=== PATIENT | female | born 1955 | race Caucasian/White ===

== ENCOUNTER → 2020-01-11 14:45 | Outpatient (CLI) | payer BC, SELFPAY ==
--- NOTE | ~2020-01-11 | MM_ITS ---
EXAMINATION: MM screening elsa BI w diego HISTORY: Screening TECHNIQUE: Craniocaudal and mediolateral oblique 3-D tomosynthesis images were obtained and synthetic 2-D images were generated. CAD analysis was submitted and interpreted. COMPARISON: Comparison to multiple prior studies sequentially, with oldest reviewed study dated 02/20. BREAST PARENCHYMAL COMPOSITION: There are scattered areas of fibroglandular density. FINDINGS: There is no evidence of suspicious mass, calcification, or architectural distortion to sugg est malignancy in either breast. There has been no suspicious interval change. IMPRESSION: 1. No mammographic evidence of malignancy. 2. Recommend routine screening mammography in one year. BI-RADS Category 1: Negative Reviewed, dictated and finalized at location A.
== END ==
PROVIDERS: PCP Family Medicine; Visit Provider Family Medicine
DX: Z12.31 Encounter for screening mammogram for malignant neoplasm of breast (principal)
CPT/HCPCS: 77063; 77067

== ENCOUNTER 2020-08-05 02:42 | Emergency (ER) | payer BC, SELFPAY ==
--- NOTE | ~2020-08-05 | CT_ITS ---
EXAMINATION: CT abdomen pelvis w con EXAM DATE: 08/05/2020 06:39 INDICATION: Trauma/hematuria/colitis. TECHNIQUE: Spiral CT of the abdomen and pelvis was performed following intravenous injection of 100 m L Omnipaque 350. Axial, coronal and sagittal images were reviewed. The dose-length product (DLP) fo r this examination was 596.55 mGy-cm. The exposure was tailored according to patient size (auto mA e xposure control), and iterative reconstruction (ASIR) was used as additional dose reduction technique . Correlation is made to right upper quadrant sonogram 06/17/2019. FINDINGS: There is lobular right liver lobe lesion measuring up to 2.9 cm, with punctate calcificatio n along its wall. This was not specifically visualized on right upper quadrant sonogram, however live r dome was somewhat obscured on that exam. Gallbladder is unremarkable. No biliary obstruction. Portal and splenic veins are patent. Kidneys enhance symmetrically. There is no hydronephrosis. There is moderate to severe right renal atrophy. There are regions of bilateral renal cortical scarring from prior infections or infarctions. The quileute josé miguel is not identified and has likely been surgically resected. The bladder is unremarkable. There i s no retroperitoneal or pelvic lymphadenopathy. There is moderate scattered arteriosclerotic diseas e. There are no findings to suggest appendicitis. There is small sliding gastroesophageal hiatal hernia . There is colonic wall edema from the mid transverse colon to the sigmoid colon, colitis. No pneuma tosis or perforation. Mesenteric vasculature enhances as expected, indicating this is more likely inf ectious. Nonocclusive mesenteric ischemia not excludable. Consider checking lactate. No free intraper itoneal gas. The heart is normal in size. There are no pericardial or pleural effusions. Scattered linear bibasi lar segmental atelectasis. There are no osteoblastic or osteolytic lesions identified. There is mod erate lower thoracic levoscoliosis. There is mild to moderate chronic compression fracture superior e ndplate of L3. IMPRESSION: 1. Transverse, descending colonic colitis most likely infectious but consider checking lactate. 2. Low-density RIGHT LIVER DOME LESION, PROBABLY CYSTIC with several septations. 3. Bilateral renal cortical scarring. 4. Bibasilar subsegmental atelectasis. 5. Small hiatal hernia. Reviewed, dictated and finalized at location A. [employer] IMPRESSION: 1. Transverse, descending colonic colitis most likely infectious but consider checking lactate. 2. Low-density RIGHT LIVER DOME LESION, PROBABLY CYSTIC with several septation s. 3. Bilateral renal cortical scarring. 4. Bibasilar subsegmental atelectasis. 5. Small hiatal hernia.
--- NOTE | ~2020-08-05 | XR_ITS ---
EXAMINATION: XR ribs RT 2V w CXR 2V EXAM DATE: 08/05/2020 05:02 INDICATION: Right rib pain after fall, posteriorly. Initial encounter. TECHNIQUE: Frontal projection of the upper right ribs, frontal projection of the lower right ribs, ob lique projection of the right ribs, frontal and lateral chest x-ray(s) for interpretation. Comparison is made to prior examination from 02/08/2016. FINDINGS: There are no displaced acute right rib fractures identified. There is no soft tissue abno rmality seen. No confluent consolidation, pneumothorax suspected. Some linear basilar opacities most consistent with subsegmental atelectasis. Possible small pleural effusions. There is moderate thorac ic dextroscoliosis, thoracolumbar levoscoliosis. Consider educating patient that even if there is a radiographically occult nondisplaced rib fracture, there is no specific treatment other than to refrain from activity that prevents healing. IMPRESSION: 1. No displaced right rib fractures. 2. Bibasilar linear opacities likely atelectasis. 3. Possible small pleural effusions. 4. Scoliosis. Reviewed, dictated and finalized at location A. [employer]
[2020-08-05 02:47] VITALS: BP 143/80; PULSE 85; RESP 23; TEMP 36.5; O2SAT 96
--- NOTE | 2020-08-05 03:25 | PC.NURSE ---
Patient sent to bathroom with fecal container to catch bloody stool. Patient noted to have slightly less than quarter size drop of red blood. Dr Malik made aware
[2020-08-05 03:30] VITALS: BP 142/82; PULSE 78; RESP 17; O2SAT 96
[2020-08-05 04:00] VITALS: BP 126/60; PULSE 73; RESP 21; O2SAT 98
[2020-08-05] MEDS: DICYCLOMINE HCL INJ 20 MG/2 ML VIAL IM (04:11)
[2020-08-05 04:35] LABS: Basophils Percent Auto 0.2 % (0.2-1.2); Eosinophils Absolute Auto 0.2 K/mm3 (0-0.3); Eosinophils Percent Auto 1.8 % (0-4.4); Hematocrit 42.7 % (37.0-47.0); Hemoglobin 14.4 g/dL (12.0-15.0); Immature Granulocyte Absolute 0.03 K/mm3 (0.00-0.031); Immature Granulocyte Percent A 0.3 % (0-0.5); Lymphocytes Absolute Auto 1.66 K/mm3 (0.9-3.2); Lymphocytes Percent Auto 17.4 % (18.3-44.2); Mean Corpuscular HGB Conc 33.7 g/dl (32-36); Mean Corpuscular Hemoglobin 29.8 pg (26-34); Mean Corpuscular Volume 88.2 fl (80-100); Mean Platelet Volume 9.1 fl (7.4-10.4); Monocytes Absolute Auto 0.6 K/mm3 (0.1-0.6); Monocytes Percent Auto 5.9 % (2.6-8.5); Neutrophils Absolute Auto 7.1 K/mm3 (1.3-6.7); Neutrophils Percent Auto 74.4 % (45.5-73.1); Platelet Count Result 209 k/mm3 (150-375); Red Blood Count 4.84 M/mm3 (4.2-5.4); Red Cell Distribution Width 11.9 % (11.5-14.5); White Blood Count 9.5 K/mm3 (4.5-10.0)
--- NOTE | 2020-08-05 04:36 | ED.NAVMDI ---
HPI - Nausea/Vomiting/Diarrhea General Chief complaint: Nausea/Vomiting/Diarrhea Stated complaint: bloody stools Time Seen by Provider: 08/05/20 03:30 History of Present Illness HPI Narrative: Patient is a 65-year-old female who presents ER with diarrhea. Began this evening has had over 8 loose bowel movements. Varying in size. One had quite a bit of bright red blood. She passed a red blood clot on the bathroom here. No syncope or dizziness. Patient reports that she had a UTI last week and took 3 days of an antibiotic. She finished that about 5 days ago. No fevers or chills or sweats. No known sick contacts. Patient also reports right-sided rib pain from falling down the steps 2 days ago. She did not strike her head or lose consciousness. She has pain with deep breath but is not short of breath. Related Data Allergies Allergy/AdvReac Type Severity Reaction Status Date / Time latex Allergy Mild Rash Verified 08/05/20 04:07 Review of Systems Review of Systems: All systems reviewed & are unremarkable except as noted in HPI and below Constitutional: Constitutional: Denies chills, Denies fever(s) and Denies weakness Cardiovascular: Cardiovascular: Denies radiating jaw, neck or arm pain Comments: Chest wall pain Respiratory: Respiratory: Denies cough and Denies dyspnea Gastrointestinal: Gastrointestinal: Reports abdominal pain, Reports diarrhea, Denies nausea and Denies vomiting Comments: Blood in stool Genitourinary: Genitourinary: Denies nocturia, Denies dysuria and Denies flank pain PMFSH Past Medical History Medical History (Updated 08/05/20 @ 07:50 by Uli Malik MD) Anxiety Depression History of left heart catheterization Hypertension Hypothyroidism Myocardial infarction Surgical History Surgical History (Updated 08/05/20 @ 04:39 by Uli Malik MD) History of hysterectomy History of thyroidectomy History of tonsillectomy Social History Social History (Updated 08/05/20 @ 04:39 by Uli Malik MD) Smoking status: Never smoker Exam Narrative: Exam Narrative: GENERAL: Well-appearing, well-nourished, and in no acute distress. HEAD: Normocephalic, atraumatic. ENT: Mucous membranes moist. CHEST: Clear to auscultation. No respiratory distress. Right lower chest wall tenderness laterally without visual evidence of trauma. HEART: Regular rate and rhythm. Normal peripheral pulses. ABDOMEN: Soft, nontender, nondistended. Back: No midline tenderness of the thoracic or lumbar spine. EXTREMITIES: Normal range of motion. No edema. SKIN: Warm, dry, no rash. NEURO: Alert and oriented x3. Course Course Emergency Course: Patient informed of results. Resting comfortably. Will give Flagyl for colitis. Discharge home. Vital Signs Vital signs: Vital Signs Temperature 97.7 F 08/05/20 02:47 Pulse Rate 85 08/05/20 02:47 Respiratory Rate 23 H 08/05/20 02:47 Blood Pressure 143/80 H 08/05/20 02:47 Pulse Oximetry 96 08/05/20 02:47 Temperature 97.7 F 08/05/20 02:47 Pulse Rate 70 08/05/20 06:00 Respiratory Rate 19 08/05/20 06:00 Blood Pressure 110/65 08/05/20 06:00 Pulse Oximetry 97 08/05/20 06:00 MDM - Nausea/Vomiting/Diarrhea Lab Data Result diagrams: 08/05/20 04:27 08/05/20 04:27 Labs: Lab Results 08/05/20 08/05/20 08/05/20 Range/Units 04:27 04:27 04:27 WBC 9.5 (4.5-10.0) K/mm3 RBC 4.84 (4.2-5.4) M/mm3 Hgb 14.4 (12.0-15.0) g/dL Hct 42.7 (37.0-47.0) % MCV 88.2 (80-100) fl MCH 29.8 (26-34) pg MCHC 33.7 (32-36) g/dl RDW 11.9 (11.5-14.5) % Plt Count 209 (150-375) k/mm3 MPV 9.1 (7.4-10.4) fl Immature Gran % (Auto) 0.3 (0-0.5) % Neut % (Auto) 74.4 H (45.5-73.1) % Lymph % (Auto) 17.4 L (18.3-44.2) % [place] % (Auto) 5.9 (2.6-8.5) % Eos % (Auto) 1.8 (0-4.4) % Baso % (Auto) 0.2 (0.2-1.2) % Lymph # (Auto) 1.66 (0.9-3.2) K/mm3 [place] #
[2020-08-05 04:39] LABS: Add Urine Microscopic? YES; Appearance Urine Clear (Clear); Bilirubin Urine Negative (Negative); Blood Urine 2+ (Negative); Color Urine Yellow (Yellow); Glucose Urine UA Negative (Negative); Ketones Urine Negative (Negative); Leukocyte Esterase Ur 1+ LEU/UL (Negative); Nitrate Urine Negative (Negative); Protein Urine 1+ mg/dL (Negative); RBC Urine >75 /hpf (0-2); Specific Grav Ur 1.012 (1.001-1.035); Squamous Epithelial Cell Urine Rare /hpf (Few); Urobilinogen Urine Negative mg/dL (<2.0); WBC Urine 21-30 /hpf
[2020-08-05 04:46] LABS: Alanine Aminotransferase 26 U/L (4-35); Alkaline Phosphatase 98 U/L (38-126); Anion Gap 6 mmol/L (8-16); Aspartate Amino Transferase 30 U/L (14-36); Bilirubin,Total 0.4 mg/dL (0.2-1.3); Blood Urea Nitrogen 22 mg/dL (7-17); Calcium 9.3 mg/dL (8.4-10.2); Carbon Dioxide 28 mmol/L (22-30); Chloride 103 mmol/L (98-107); Estimated CRCL calculation 43 ml/min; Estimated Glomerular Filt Rate 45; Glucose 107 mg/dL (65-105); Lipase 224 U/L (23-300); Sodium 137 mmol/L (137-145)
[2020-08-05 05:00] VITALS: BP 130/70; PULSE 66; RESP 17; O2SAT 95
[2020-08-05 06:00] VITALS: BP 110/65; PULSE 70; RESP 19; O2SAT 97
[2020-08-05 08:08] VITALS: BP 130/74; PULSE 71; RESP 18; O2SAT 100
== END 2020-08-05 08:11 | disposition home or self-care (01) ==
PROVIDERS: Emergency Provider Emergency Medicine; PCP Family Medicine
DX: K52.9 Noninfective gastroenteritis and colitis, unspecified (principal); D18.09 Hemangioma of other sites; I10 Essential (primary) hypertension; I25.2 Old myocardial infarction; E89.0 Postprocedural hypothyroidism
CPT/HCPCS: 36415; 71046; 71100; 74177; 80053; 81001; 83690; 85025; 87077; 87086; 87088; 96372; 99284; J0500; Q9967

== ENCOUNTER → 2020-08-28 09:20 | Outpatient (CLI) | payer BC, SELFPAY ==
--- NOTE | ~2020-08-28 | US_ITS ---
EXAMINATION: US thyroid EXAM DATE: 08/28/2020 09:54 INDICATION: Cyst of thyroid . Right thyroidectomy. Hypothyroidism. TECHNIQUE: Multiple grayscale and Doppler images of the thyroid were obtained (by a technologist who performed the scan) and subsequently reviewed. Individual nodules and recommendations may be reporte d in accordance with TI-RADS system as designated by the 2017 ACR White Paper TI-RADS committee. The re is no prior study for comparison. FINDINGS: The right thyroid lobe is not identified, with an unremarkable thyroid fossa. Left thyroid lobe measu res 2.9 x 0.5 x 0.8 cm, small but otherwise morphologically normal. IMPRESSION: 1. Small left thyroid lobe. 2. Unremarkable right thyroidectomy bed. Reviewed, dictated and finalized at location A.
--- NOTE | ~2020-08-28 | US_ITS ---
US right upper quadrant INDICATION: Liver cyst PROCEDURE: Realtime right upper abdominal ultrasound. COMPARISON: CT dated 08/05/2020 and ultrasound dated 06/17/2019 FINDINGS: The pancreas is normal without focal mass or pancreatic ductal dilation. Liver echotexture is normal without focal mass or intrahepatic biliary dilatation. The hypodense mass of the right hep atic lobe seen on prior CT dated 08/05/2020 is not appreciated. There is normal directional flow in t he portal vein. The gallbladder is normal without stones, gallbladder wall thickening or pericholecystic fluid. Comm on bile duct measures 3 mm. No sonographic Blanchard's sign. IMPRESSION: 1: Normal limited abdominal ultrasound. The low-density mass of the liver seen on prior CT not apprec iated by ultrasound. Recommend correlation with MRI. Reviewed, dictated and finalized at location B. IMPRESSION: 1: Normal limited abdominal ultrasound. The low-density mass of the liver seen on prior CT not appreciated by ultrasound. Recommend correlation with MRI.
== END ==
PROVIDERS: PCP Family Medicine; Visit Provider Family Medicine
DX: E04.1 Nontoxic single thyroid nodule (principal); K76.89 Other specified diseases of liver
CPT/HCPCS: 76536; 76705

== ENCOUNTER → 2021-06-19 15:52 | Outpatient (CLI) | payer BC, SELFPAY ==
--- NOTE | ~2021-06-19 | MM_ITS ---
EXAMINATION: MM screening elsa BI w diego HISTORY: Screening TECHNIQUE: Craniocaudal and mediolateral oblique 3-D tomosynthesis images were obtained and synthetic 2-D images were generated. CAD analysis was submitted and interpreted. COMPARISON: Comparison to multiple prior studies sequentially, with oldest reviewed study dated 09/18. BREAST PARENCHYMAL COMPOSITION: There are scattered areas of fibroglandular density. FINDINGS: There is no evidence of suspicious mass, calcification, or architectural distortion to sugg est malignancy in either breast. There has been no suspicious interval change. IMPRESSION: 1. No mammographic evidence of malignancy. 2. Recommend routine screening mammography in one year. BI-RADS Category 1: Negative Reviewed, dictated and finalized at location A. L MAKER
== END ==
PROVIDERS: Visit Provider Family Medicine
DX: Z12.31 Encounter for screening mammogram for malignant neoplasm of breast (principal)
CPT/HCPCS: 77063; 77067

== ENCOUNTER 2021-11-25 09:08 | Emergency (ER) | payer BC, SELFPAY ==
[2021-11-25 09:17] VITALS: BP 148/70; PULSE 73; RESP 16; TEMP 37.2; O2SAT 98
--- NOTE | 2021-11-25 09:24 | ED.SKABFB ---
HPI - Skin/Abscess/Foreign Bdy General Chief complaint: Skin/Abscess/Foreign Body Stated complaint: Insect Bite Time Seen by Provider: 11/25/21 09:24 Source: patient Mode of arrival: ambulatory Limitations: no limitations History of Present Illness HPI narrative: 66-year-old female presents with complaint of spider bite to left forearm. Did not see a spider bite her but reports there were spiders in grass when she was helping her daughter clean. Has been applying calamine and Polysporin cream. Reports that redness is improving. Is mostly concerned because itching is bothering her. Has not tried any kpya-feb-kslniyr steroid cream or Benadryl. All systems reviewed and negative except as noted above. Related Data Allergies Allergy/AdvReac Type Severity Reaction Status Date / Time latex Allergy Mild Rash Verified 08/05/20 04:07 bacitracin Allergy Hives Verified 11/25/21 09:25 [From Neosporin ([id number])] neomycin Allergy Hives Verified 11/25/21 09:25 [From Neosporin ([id number])] polymyxin B Allergy Hives Verified 11/25/21 09:25 [From Neosporin ([id number])] Review of Systems Review of Systems: CONSTITUTIONAL: Denies fever, chills, or sweats. EYES: Denies visual changes, redness, or discharge. ENT: Denies rhinorrhea, congestion, sore throat, or otalgia. CARDIOVASCULAR: Denies chest pain, palpitations, or edema. RESPIRATORY: Denies cough or dyspnea. GASTROINTESTINAL: Denies abdominal pain, nausea, vomiting, or diarrhea. GENITOURINARY: Denies dysuria or hematuria. SKIN: Denies rash. Reports itchy spider bite to left forearm. MUSCULOSKELETAL: Denies back pain, joint pain, or myalgia. NEUROLOGIC: Denies headache, numbness, or weakness. PSYCHIATRIC: Denies anxiety or depression. All other systems reviewed are negative, except as documented in HPI. [facility] Past Medical History Medical History (Updated 11/25/21 @ 09:29 by Melissa Fernando NP) Anxiety Depression History of left heart catheterization Hypertension Hypothyroidism Myocardial infarction Surgical History Surgical History (Updated 08/05/20 @ 04:39 by Uli Malik MD) History of hysterectomy History of thyroidectomy History of tonsillectomy Social History Social History (Updated 08/05/20 @ 04:39 by Uli Malik MD) Smoking status: Never smoker Comments At time of signature, agree with nursing past medical, surgical, social and family history. There is no relevant family history pertinent to the presenting complaint. Exam Narrative: GENERAL: This is a well-nourished, well-developed patient, in no apparent distress. HEAD: normocephalic, atraumatic. EYES: PERRL. Sclera clear/white. Vision is grossly intact. EARS: External ears normal NOSE: External nose normal NECK: Neck supple, non-tender without lymphadenopathy, masses or thyromegaly. CARDIOVASCULAR: Regular rate and rhythm without murmurs, gallops, or rubs. RESPIRATORY: Clear to auscultation. Breath sounds equal bilaterally. No wheezes, rales, or rhonchi. SKIN: warm, Dry, intact with no suspicious rash, good texture and turgor. Erythematous papules to lateral aspect of left forearm, approximately the size of a pencil eraser. There is no drainage. There is no tenderness on palpation. There are no signs of infection. NEURO: awake, alert, and oriented to person, place and time. There were no obvious focal neurologic abnormalities. EXTREMITIES: No joint tenderness, effusion, or edema noted. Course Course Level of Care: Express Care Visit Vital Signs Vital signs: Vital Signs Temperature 37.2 C 11/25/21 09:17 Pulse Rate 73 11/25/21 09:17 Respiratory Rate 16 11/25/21 09:17 Blood Pressure 148/70 H 11/25/21 09:17 Pulse Oximetry 98 11/25/21 09:17 Oxygen Delivery Room Air 11/25/21 09:17 Temperature 37.2 C 11/25/21 09:17 Pulse Rate 73 11/25/21 09:17 Respiratory Rate 16 11/25/21 09:17 Blood Pressure 1
== END 2021-11-25 09:33 | disposition home or self-care (01) ==
PROVIDERS: Emergency Provider Nurse Practitioner Family; PCP Family Medicine
DX: S50.862A Insect bite (nonvenomous) of left forearm, initial encounter (principal); W57.XXXA Bitten or stung by nonvenomous insect and other nonvenomous arthropods, initial encounter; I10 Essential (primary) hypertension; I25.2 Old myocardial infarction; E89.0 Postprocedural hypothyroidism; F41.9 Anxiety disorder, unspecified; F32.A Depression, unspecified
CPT/HCPCS: 99213; G0463

== ENCOUNTER → 2021-12-27 11:20 | Outpatient (CLI) | payer BC, SELFPAY ==
--- NOTE | ~2021-12-27 | US_ITS ---
EXAMINATION: US carotid duplex BI DATE: 12/27/2021 11:40 INDICATION: Carotid stenosis. TECHNIQUE: Grayscale, color Doppler, and pulsed Doppler images of the cervical carotid arteries were obtained. The degree of vessel stenosis is placed in one of the following categories: normal, <50%, 5 0-69%, >=70% but less than near-occlusion, near-occlusion, or total occlusion. Note that percent sten osis relative to normal distal artery lumen diameter is indirectly measured from velocity measurement s as described by Humberto, et al. Radiology 2003; 229:340-346. Notes: Normal: Peak systolic velocity <125 centimeters/sec and no plaque <50%. Peak systolic velocity <125 ( EDV <40; ICA/CCA PSV ratio <2.0; used these factors only a tandem lesions or low cardiac output or co ntralateral disease) 50-69 %: PSV 125-230 (EDV 40-100; ratio 2-4) >= 70% but less than near occlusion: PSV greater than 230 (EDV > 100; ratio> 4.0) Near Occlusion: PSV that is variable; markedly narrowed lumen Occlusion: Absent flow on color/spectral Doppler and no lumen on caceres scale. COMPARISON: None. FINDINGS: RIGHT: The right common carotid artery (CCA) peak systolic velocity (PSV) is 106 cm/s. The right internal ca rotid artery (ICA) PSV is 85 cm/s. The right ICA end-diastolic velocity (EDV) is 23 cm/s. The right I CA/CCA PSV ratio is 1.4. The external carotid artery (ECA) PSV is 108 cm/s. There is antegrade flow i n the right vertebral artery. LEFT: The left CCA PSV is 132 cm/s. The left ICA PSV is 90 cm/s. The left ICA EDV is 35 cm/s. The left ICA/ CCA PSV ratio is 1. The ECA PSV is 108 cm/s. There is antegrade flow in the left vertebral artery. IMPRESSION: 1. Less than 50% stenosis in the right internal carotid artery by sonographic criteria. 2. Less than 50% stenosis in the left internal carotid artery by sonographic criteria. Reviewed, dictated and finalized at location A. IMPRESSION: 1. Less than 50% stenosis in the right internal carotid artery by sonographic pj beltre. 2. Less than 50% stenosis in the left internal carotid artery by sonographic leticia cassidy.
== END ==
PROVIDERS: PCP Family Medicine; Visit Provider Internal Medicine Cardiovascular Disease
DX: I65.23 Occlusion and stenosis of bilateral carotid arteries (principal)
CPT/HCPCS: 93880

== ENCOUNTER → 2021-12-27 13:20 | Outpatient (CLI) | payer BC, SELFPAY ==
--- NOTE | ~2021-12-27 | DEXA_ITS ---
Bone Density Report Name: ALEX OSORIO Age: 66 Sex: Female Ethnicity: White Date of : 1955 Indication: osteopenia; hysterectomy; Referring Provider: DEANN, [facility] Study: Bone densitometry was performed. Exam Date: December 27, 2021 Accession number: [id number] Bone Density: Region BMD T-score Z-score Classification AP Spine (L1-L4) 0.874 -1.6 0.2 Osteopenia Femoral Neck (Left) 0.660 -1.7 -0.2 Osteopenia Total Hip (Left) 0.849 -0.8 0.4 Normal Femoral Neck (Right) 0.627 -2.0 -0.5 Osteopenia Total Hip (Right) 0.777 -1.4 -0.1 Osteopenia Total Hip Mean 0.813 -1.1 0.2 Osteopenia World Health Organization criteria for BMD impression classify patients as: Normal (T-score at or above -1.0), Osteopenia (T-score between -1.0 and -2.5), or Osteoporosis (T-score at or below -2.5). 10-year Fracture Risk(1): Major Osteoporotic Fracture 12% Hip Fracture 2.1% Reported Risk Factors: [place] (), Neck BMD=0.627, BMI=30.6, alcohol use (1) FRAX(R) Version 3.08. Fracture probability calculated for an untreated patient. Fracture probability may be lower if the patient has received treatment. Previous Exams: Region Exam Age BMD T-score BMD Change BMD Change Date g/cm2 vs Baseline vs Previous AP Spine(L1-L4) 12/27/2021 66 0.874 -1.6 -0.016 0.025* 09/18/2017 62 0.848 -1.8 -0.041* 0.000 02/20/2010 54 0.849 -1.8 -0.041* -0.041* 08/24/2007 52 0.890 -1.4 Total Hip(Left) 12/27/2021 66 0.849 -0.8 0.010 0.048* 09/18/2017 62 0.801 -1.2 -0.038* -0.016 02/20/2010 54 0.817 -1.0 -0.022 -0.022 08/24/2007 52 0.839 -0.8 Total Hip(Right) 12/27/2021 66 0.777 -1.4 0.016 0.028* 09/18/2017 62 0.749 -1.6 -0.012 -0.022 02/20/2010 54 0.771 -1.4 0.010 0.010 08/24/2007 52 0.761 -1.5 *Denotes significance at 95% confidence level, LSC for AP Spine = 0.022 g/cm2, LSC for Total Hip = 0.027 g/cm2 Clinical Information Provided by Patient: Has 3 or more alcoholic drinks per day Has used the following medications: Calcium Has the following medical conditions: Hysterectomy Patient maximum height was 64.7 Menopause Age: 52 No regular weight bearing exercise Does not regularly consume dairy products Drinks caffeinated beverages Onset of menses at age 16 Number of children 2
== END ==
PROVIDERS: PCP Family Medicine; Visit Provider Family Medicine
DX: M85.88 Other specified disorders of bone density and structure, other site (principal); M85.852 Other specified disorders of bone density and structure, left thigh; M85.851 Other specified disorders of bone density and structure, right thigh; Z91.89 Other specified personal risk factors, not elsewhere classified; Z78.9 Other specified health status
CPT/HCPCS: 77080

== ENCOUNTER 2022-02-13 08:01 | Outpatient (CLI) | payer BC, SELFPAY ==
[2022-02-13 08:57] LABS: Alanine Aminotransferase 46 U/L (6-35); Albumin Level 4.5 g/dL (3.5-5.1); Alkaline Phosphatase 79 U/L (38-126); Anion Gap 10 mmol/L (8-16); Aspartate Amino Transferase 35 U/L (14-36); Bilirubin,Total 0.9 mg/dL (0.2-1.3); Blood Urea Nitrogen 27 mg/dL (7-17); Calcium 9.5 mg/dL (8.4-10.2); Carbon Dioxide 27 mmol/L (22-30); Chloride 102 mmol/L (98-107); Cholesterol 145 mg/dL (0-200); Estimated Glomerular Filt Rate 50; Glucose 103 mg/dL (65-110); HDL Direct 41 mg/dL; Potassium 4.2 mmol/L (3.4-5.0); Sodium 139 mmol/L (137-145); Triglycerides 225 mg/dL (<150)
[2022-02-13 09:08] LABS: LDL Cholesterol Direct 66 mg/dL
== END 2022-02-13 08:02 | disposition home or self-care (01) ==
PROVIDERS: PCP Family Medicine; Referring Provider Internal Medicine Cardiovascular Disease; Visit Provider Internal Medicine Cardiovascular Disease
DX: E78.2 Mixed hyperlipidemia (principal)
CPT/HCPCS: 36415; 80053; 80061

== ENCOUNTER 2022-03-14 16:16 | Emergency (ER) | payer BC, SELFPAY ==
[2022-03-14 16:24] VITALS: BP 141/75; PULSE 77; RESP 18; TEMP 36.9; O2SAT 98
[2022-03-14 16:25] VITALS: BP 141/75; PULSE 77; RESP 18; TEMP 36.9; O2SAT 98
--- NOTE | 2022-03-14 17:01 | ED.WOUNDLAC ---
HPI - Wound/Laceration General Chief Complaint: Wound/Laceration Stated Complaint: Cut Finger Rt Hand Source: patient Mode of arrival: ambulatory Limitations: no limitations History of Present Illness HPI narrative: This is a 66 year old female that today when getting out of her car she fell and scrap or cut her right middle finger. Patient states her tetanus is up to date . Patient denies hitting her head and states that she not for sure what she hit. The reason patient came in because her finger continues to bleed off and on . Related Data Home Medications Medication Instructions Recorded Confirmed allopurinol 100 mg tablet 100 mg PO DIRECTED 11/25/21 03/14/22 bupropion HCl 150 mg 24 hr tablet, 150 mg PO DIRECTED 11/25/21 03/14/22 extended release carvedilol 3.125 mg tablet 3.125 mg PO DIRECTED 11/25/21 03/14/22 icosapent ethyl 1 gram capsule 1 g PO DIRECTED 11/25/21 03/14/22 levothyroxine 100 mcg tablet 100 mcg PO DIRECTED 11/25/21 03/14/22 (Synthroid) ramipril 5 mg capsule 5 mg PO DAILY 11/25/21 03/14/22 rosuvastatin 40 mg tablet 40 mg PO DAILY 11/25/21 03/14/22 Allergies Allergy/AdvReac Type Severity Reaction Status Date / Time bacitracin AdvReac Mild Hives Verified 03/14/22 16:25 [From Neosporin ([id number])] latex AdvReac Mild Rash Verified 03/14/22 16:25 neomycin AdvReac Mild Hives Verified 03/14/22 16:25 [From Neosporin ([id number])] polymyxin B AdvReac Mild Hives Verified 03/14/22 16:25 [From Neosporin ([id number])] Review of Systems Review of Systems: Right middle finger laceration All systems reviewed & are unremarkable except as noted in HPI and below PMFSH Past Medical History Medical History (Updated 03/14/22 @ 17:04 by Alejandro Mcarthur NP) Anxiety Depression History of left heart catheterization Hypertension Hypothyroidism Myocardial infarction Surgical History Surgical History (Updated 08/05/20 @ 04:39 by Uli Malik MD) History of hysterectomy History of thyroidectomy History of tonsillectomy Social History Social History (Updated 08/05/20 @ 04:39 by Uli Malik MD) Smoking status: Never smoker Exam Narrative: GENERAL:Well-appearing, well-nourished, and in no acute distress. HEAD:Normocephalic, atraumatic. EYES: PERRLA ENT: Nares clear, no rhinorrhea or epistaxis. Mucous membranes moist. CHEST: Ease of rise and fall of chest wall. No respiratory distress. HEART: Regular rate and rhythm. Normal peripheral pulses. ABDOMEN: Soft, nontender, nondistended EXTREMITIES: Normal range of motion. No edema. SKIN: Warm, dry, no rash. NEURO: No focal deficits. Alert and oriented x3. Course Course Level of Care: Express Care Visit Vital Signs Vital signs: Vital Signs Temperature 98.5 F 03/14/22 16:24 Pulse Rate 77 03/14/22 16:24 Respiratory Rate 18 03/14/22 16:24 Blood Pressure 141/75 H 03/14/22 16:24 Pulse Oximetry 98 03/14/22 16:24 Oxygen Delivery Room Air 03/14/22 16:24 Temperature 98.5 F 03/14/22 16:25 Pulse Rate 77 03/14/22 16:25 Respiratory Rate 18 03/14/22 16:25 Blood Pressure 141/75 H 03/14/22 16:25 Pulse Oximetry 98 03/14/22 16:25 Oxygen Delivery Room Air 03/14/22 16:25 Procedures Laceration Laceration 1: Date: 03/14/22 Time: 16:27 Site: hand Side (If applicable): right (middle finer) Size (cm): 0.25 Description: flap Local Anesthetic: none Pre-repair: other (soaked chlorheidine and sterile water ) ====== Skin Level ====== Skin layer closed with: dermabond, steri strips and other (Tube guaze) ====== Subcutaneous Layer ====== ====== Muscle Layer ====== ====== Tendon Layer ====== MDM - Wound/Laceration Differential Diagnosis Differential diagnosis: Likely laceration, abscess, abrasion and avulsion of skin Discharge Plan Discharge Clinic
== END 2022-03-14 17:05 | disposition home or self-care (01) ==
PROVIDERS: Emergency Provider Nurse Practitioner Family; PCP Family Medicine
DX: S61.212A Laceration without foreign body of right middle finger without damage to nail, initial encounter (principal); V48.4XXA Person boarding or alighting a car injured in noncollision transport accident, initial encounter; I10 Essential (primary) hypertension; I25.2 Old myocardial infarction; F41.9 Anxiety disorder, unspecified; F32.A Depression, unspecified; E89.0 Postprocedural hypothyroidism
CPT/HCPCS: 12001; 99212; G0463

== ENCOUNTER → 2022-07-08 08:04 | Outpatient (CLI) | payer MEDICARE, BC, SELFPAY ==
--- NOTE | ~2022-07-08 | US_ITS ---
Limited Abdominal Sonogram: Real-time sonographic imaging of the right upper quadrant was performed. Clinical History: Liver disease Findings: The liver appears echogenic, with no evidence of intrahepatic biliary dilatation. Possible subtle 2.1 cm hypoechoic mass in the right hepatic lobe.. Main portal vein demonstrates normal direc tion of flow. The gallbladder is well distended, and appears normal with no evidence of gallstone or wall thickening. The common bile duct measures 3 mm. The pancreas, aorta, and IVC are largely obscur ed by bowel gas shadowing.. Right kidney measures 7.5 cm in length, without evidence for hydronephros is. Impression: Diffuse fatty infiltration of the liver. 2.1 cm hypoechoic mass left hepatic lobe. This correlates with a hypodense lesion seen on prior CT sc an dated 08/05/2020. Although indeterminate, relative stability over this time interval suggests benign ity. MR correlation can be performed as indicated, if not already performed previously. Reviewed, dictated and finalized at [facility]. [facility] Impression: Diffuse fatty infiltration of the liver. 2.1 cm hypoechoic mass left hepatic lobe. This correlates with a hypodense lesi on seen on prior CT scan dated 08/05/2020. Although indeterminate, relative stabi lity over this time interval suggests benignity. MR correlation can be performe d as indicated, if not already performed previously.
--- NOTE | ~2022-07-08 | US_ITS ---
EXAMINATION: US thyroid DATE: 07/08/2022 08:40 INDICATION: Nontoxic single thyroid nodule. TECHNIQUE: Multiple ultrasound images of the thyroid were obtained. COMPARISON: Ultrasound 08/28/2020 FINDINGS: The right thyroid lobe is absent. The left thyroid lobe measures 2.1 x 0.7 x 0.9 cm. There is normal echotexture and echogenicity throughout the thyroid gland. No discrete nodules identified. Normal va scular flow is present. IMPRESSION: 1. Small left thyroid lobe. 2. Right hemithyroidectomy. Reviewed, dictated and finalized at location A. GER MAN
== END ==
PROVIDERS: PCP Family Medicine; Visit Provider Family Medicine
DX: E04.1 Nontoxic single thyroid nodule (principal); K76.89 Other specified diseases of liver; K76.0 Fatty (change of) liver, not elsewhere classified
CPT/HCPCS: 76536; 76705

== ENCOUNTER → 2022-09-05 13:15 | Outpatient (CLI) | payer MEDICARE, BC, SELFPAY ==
--- NOTE | ~2022-09-05 | MM_ITS ---
EXAMINATION: MM screening [facility] BI [place] HISTORY: Screening TECHNIQUE: Craniocaudal and mediolateral oblique 3-D tomosynthesis images were obtained and synthetic 2-D images were generated. CAD analysis was submitted and interpreted. COMPARISON: Comparison to multiple prior studies sequentially, with oldest reviewed study dated 06/2018. BREAST PARENCHYMAL COMPOSITION: There are scattered areas of fibroglandular density. FINDINGS: There is no evidence of suspicious mass, calcification, or architectural distortion to sugg est malignancy in either breast. There has been no suspicious interval change. IMPRESSION: 1. No mammographic evidence of malignancy. 2. Recommend routine screening mammography in one year. BI-RADS Category 1: Negative Reviewed, dictated and finalized at location A.
== END ==
PROVIDERS: PCP Family Medicine; Visit Provider Family Medicine
DX: Z12.31 Encounter for screening mammogram for malignant neoplasm of breast (principal)
CPT/HCPCS: 77063; 77067

== ENCOUNTER 2023-07-10 07:50 | Outpatient (CLI) | payer MEDICARE, BC, SELFPAY ==
--- NOTE | ~2023-07-10 | US_ITS ---
Limited Abdominal Sonogram: Real-time sonographic imaging of the right upper quadrant was performed. Clinical History: Liver cyst Findings: The liver appears normal with no evidence of mass lesion or bile duct dilatation. Main por sruthi vein demonstrates normal direction of flow. The gallbladder is well distended, and appears normal with no evidence of gallstone or wall thickening. The common bile duct measures 3 mm. The visualize d pancreas, aorta, and IVC are unremarkable. Impression: No significant abnormality seen. Reviewed, dictated and finalized at location . R REPAIRER Impression: No significant abnormality seen.
--- NOTE | ~2023-07-10 | US_ITS ---
EXAMINATION: US thyroid DATE: 07/10/2023 08:22 INDICATION: Cyst of the thyroid TECHNIQUE: Multiple ultrasound images of the thyroid were obtained. COMPARISON: None. FINDINGS: The right thyroid lobe is not visualized and reportedly surgically absent. No abnormal masses at the right thyroid fossa. The left thyroid lobe measures 3.0 x 1.0 x 0.7 cm. There is a 3 mm solid hypoec hoic nodule with ill-defined margins and without echogenic foci (TI-RADS 4, moderately suspicious , F NA if >=1.5 cm, annual followup is >=1 cm) in the left thyroid lobe. IMPRESSION: 1. Status post right thyroidectomy with 3 mm left thyroid nodule which is below threshold for either biopsy or follow-up. Reviewed, dictated and finalized at location A. E HAND
== END 2023-07-10 07:51 ==
PROVIDERS: PCP Family Medicine; Visit Provider Family Medicine
DX: K76.89 Other specified diseases of liver (principal); E04.1 Nontoxic single thyroid nodule
CPT/HCPCS: 76536; 76705

== ENCOUNTER 2023-10-07 10:48 | Outpatient (CLI) | payer MEDICARE, BC, SELFPAY ==
--- NOTE | ~2023-10-07 | MM_ITS ---
EXAMINATION: MM screening [facility] [place] HISTORY: Screening mammogram TECHNIQUE: Craniocaudal and mediolateral oblique 3-D tomosynthesis images were obtained and synthetic 2-D images were generated. CAD analysis was submitted and interpreted. COMPARISON: September 05, 2022, June 19, 2021 bilateral screening mammogram examinations BREAST PARENCHYMAL COMPOSITION: There are scattered areas of fibroglandular density. FINDINGS: There is no evidence of suspicious mass, calcification, or architectural distortion to sugg est malignancy in either breast. There has been no suspicious interval change. IMPRESSION: 1. No mammographic evidence of malignancy. 2. Recommend routine screening mammography in one year. BI-RADS Category 1: Negative Reviewed, dictated and finalized at location B.
== END 2023-10-07 10:49 ==
LOC: MICIMG 10:50
PROVIDERS: PCP Family Medicine; Visit Provider Family Medicine
DX: Z12.31 Encounter for screening mammogram for malignant neoplasm of breast (principal)
CPT/HCPCS: 77063; 77067

== ENCOUNTER 2024-01-09 07:13 | Outpatient (CLI) | payer MEDICARE, BC, SELFPAY ==
--- NOTE | ~2024-01-09 | DEXA_ITS ---
Bone Density Report Name: ALEX OSORIO Age: 68 Sex: Female Ethnicity: White Date of : 1955 Indication: postmenopausal; screening for osteoporosis; history of glucocorticoids; cancer; hysterectomy; Referring Provider: DEANN, [facility] Study: Bone densitometry was performed. Exam Date: January 09, 2024 Accession number: [id number] Bone Density: Region BMD T-score Z-score Classification AP Spine(L1-L4) 0.871 -1.6 0.3 Osteopenia Femoral Neck (Left) 0.623 -2.0 -0.4 Osteopenia Total Hip (Left) 0.859 -0.7 0.6 Normal Femoral Neck (Right) 0.575 -2.5 -0.9 Osteoporosis Total Hip (Right) 0.851 -0.7 0.6 Normal Total Hip Mean 0.855 -0.7 0.6 Normal World Health Organization criteria for BMD impression classify patients as: Normal (T-score at or above -1.0), Osteopenia (T-score between -1.0 and -2.5), or Osteoporosis (T-score at or below -2.5). 10-year Fracture Risk: FRAX not reported because: Some T-score for Spine Total or Hip Total or Femoral Neck at or below -2.5 Clinical Information Provided by Patient: Has taken Glucocorticoids Has used the following medications: Vitamin D, Calcium Has the following medical conditions: Cancer, Hysterectomy, SKIN CANCER Patient maximum height was 64.75 Menopause Age: 42 Drinks caffeinated beverages Onset of menses at age 16 Number of children 2 Impression: The patient has osteoporosis, based on the Right Femoral Neck T-score. The patient has risk factors, including: history of glucocorticoid therapy. Discussion: INCREASED RISK OF FRACTURE. BONE DENSITY IS UNDESIRABLY LOW AT ONE OR MORE SKELETAL SITES, CONSISTENT WITH POSTMENOPAUSAL OSTEOPOROSIS. This patient's lowest T-score meets the World Health Organization's (WHO) criteria for osteoporosis at one or more sites (T-score -2.5 or below). In untreated patients, the risk of osteoporotic fracture increases approximately two-fold for each 1.0 SD decrease in T-score. Low bone density is not the only risk factor for fracture; also consider factors such as patient's age, frailty or poor health, risk of falling, risk of injury, previous osteoporotic fracture, family history of osteoporosis, cigarette smoking, low body weight, etc. Not everyone with low bone mineral density has osteoporosis; osteomalacia and other metabolic bone disorders should also be considered. Patients who have osteoporosis should be evaluated for specific diseases and conditions (secondary causes) that may cause or contribute to bone loss. The [place] [employer]ocrin[employer] (AACE) and National Osteoporosis Foundation (NOF) recommend pharmacologic intervention for all postmenopausal women whose T-score is in this range. The patient should follow a healthful lifestyle (good nutrition with adequate calcium and vitamin D, and simon
== END 2024-01-09 07:14 | disposition home or self-care (01) ==
LOC: ANHIMG 07:15
PROVIDERS: PCP Family Medicine; Visit Provider Family Medicine
DX: Z13.820 Encounter for screening for osteoporosis (principal); Z78.0 Asymptomatic menopausal state; M85.88 Other specified disorders of bone density and structure, other site; M85.852 Other specified disorders of bone density and structure, left thigh; M81.0 Age-related osteoporosis without current pathological fracture
CPT/HCPCS: 77080

== ENCOUNTER 2025-02-14 03:17 | Day surgery (SDC) | payer MEDICARE, BC, SELFPAY ==
[2025-02-14 08:46] VITALS: BP 146/86; PULSE 72; RESP 18; TEMP 37; O2SAT 98
[2025-02-14] MEDS: LACTATED RINGERS 1,000 ML 150 ML IV CONT (08:53)
--- NOTE | 2025-02-14 09:05 | WPDANESEPPF ---
Anes - Initial Pre Proc Eval Procedure: Operation Date: 02/14/25 10:00 Proposed Procedures p Screening Colonoscopy - Ko Huang MD Date/Time: 02/14/25 09:05 Surgeon: Ko Huang MD Pre Op Diagnosis: Screening Patient Data Age: 69 Gender: F Height: 1.63 m Weight: 80.1 kg Last Vital Signs Temp 98.6 F 02/14/25 08:46 Pulse 72 02/14/25 08:46 Resp 18 02/14/25 08:46 BP 146/86 H 02/14/25 08:46 Pulse Ox 98 02/14/25 08:46 O2 Del Method Room Air 02/14/25 08:46 Allergies Allergy/AdvReac Type Severity Reaction Status Date / Time adhesive Allergy Intermediate Rash Verified 02/14/25 08:45 bacitracin (From Neosporin AdvReac Mild Hives Verified 02/14/25 08:45 ([id number])) latex AdvReac Mild Rash Verified 02/14/25 08:45 neomycin (From Neosporin AdvReac Mild Hives Verified 02/14/25 08:45 ([id number])) polymyxin B (From Neosporin AdvReac Mild Hives Verified 02/14/25 08:45 ([id number])) Home Medications ?Medication ?Instructions ?Recorded ?Confirmed ?Type allopurinol 100 mg tablet 100 mg PO DAILY 11/25/21 02/01/25 History icosapent ethyl 1 gram capsule 2 g PO DAILY 11/25/21 02/01/25 History levothyroxine 100 mcg tablet 88 mcg PO DAILY 11/25/21 02/01/25 History (Synthroid) ramipril 5 mg capsule 10 mg PO DAILY 11/25/21 02/01/25 History rosuvastatin 40 mg tablet 40 mg PO DAILY 11/25/21 02/01/25 History alendronate 70 mg tablet 70 mg PO WEEKLY 02/01/25 02/01/25 History calcium citrate 200 mg PO DAILY 02/01/25 02/01/25 History estradiol 0.01% (0.1 mg/gram) 1 appful vaginal WEEKLY 02/01/25 02/01/25 History vaginal cream ezetimibe 10 mg tablet 10 mg PO DAILY 02/01/25 02/01/25 History Patient hx anesthesia problems: none Family hx anesthesia problems: none Results Review: All pre-operative results and documents have been reviewed as part of the pre-operative evaluation. [facility] Past Medical History Medical History Anxiety Depression Hypothyroidism Hypertension History of left heart catheterization Myocardial infarction Surgical History Surgical History History of thyroidectomy History of hysterectomy History of tonsillectomy Social History Social History Smoking packs per day: 2 Smoking cigarettes per day: 40.0 Years smoked: 18 Smoking pack-years: 36.00 Smoking status: Former smoker Tobacco type: cigarettes Alcohol intake: current Drinks per week: 14 Alcohol use details: Liquor Substance use: never Substance use type: does not use Living arrangements: with family Spiritual care concerns: No Anes - Eval Final PreProcedure Day of Procedure 02/14/25 09:05 Patient weight: obese Lungs: normal air movement Airway: Mallampati scale class II Neurological: alert and oriented Last oral intake: >/= 8 hours ASA classification: III Emergent: no Anesthetic plan: proceed Anesthesia type and monitoring: general GIVS and standard monitoring Results Review: All pre-operative results and documents have been reviewed as part of the pre-operative evaluation. HTN, hyperlipidemia, hypothyroidism, hx HI 2007 without PTCA, hx states ETOH use 14 drinks/week. Pt reports that she walks treadmill 30 mins/5 x week, no cp or sob. Informed Consent: The patient's anesthetic plan and its attendant risks and benefits were discussed with the patient/family/POA. Questions were solicited and answers provided to the satisfaction of the patient/family/POA.
--- NOTE | 2025-02-14 10:05 | PM.IMHP ---
H&P: HPI History of Present Illness Date/Time: 02/14/25 10:05 Chief Complaint: History of colon polyps Narrative: The patient has a history of colonic polyps, the last colonoscopy was 5 years ago. Review of Systems Review of Systems: All systems reviewed & are unremarkable except as noted in HPI and below PMFSH Past Medical History Medical History Anxiety Depression Hypothyroidism Hypertension History of left heart catheterization Myocardial infarction Surgical History Surgical History History of thyroidectomy History of hysterectomy History of tonsillectomy Social History Social History Smoking packs per day: 2 Smoking cigarettes per day: 40.0 Years smoked: 18 Smoking pack-years: 36.00 Smoking status: Former smoker Tobacco type: cigarettes Alcohol intake: current Drinks per week: 14 Alcohol use details: Liquor Substance use: never Substance use type: does not use Living arrangements: with family Spiritual care concerns: No Meds Home Medications and Allergies Home Medications ?Medication ?Instructions ?Recorded ?Confirmed ?Type allopurinol 100 mg tablet 100 mg PO DAILY 11/25/21 02/01/25 History icosapent ethyl 1 gram capsule 2 g PO DAILY 11/25/21 02/01/25 History levothyroxine 100 mcg tablet 88 mcg PO DAILY 11/25/21 02/01/25 History (Synthroid) ramipril 5 mg capsule 10 mg PO DAILY 11/25/21 02/01/25 History rosuvastatin 40 mg tablet 40 mg PO DAILY 11/25/21 02/01/25 History alendronate 70 mg tablet 70 mg PO WEEKLY 02/01/25 02/01/25 History calcium citrate 200 mg PO DAILY 02/01/25 02/01/25 History estradiol 0.01% (0.1 mg/gram) 1 appful vaginal WEEKLY 02/01/25 02/01/25 History vaginal cream ezetimibe 10 mg tablet 10 mg PO DAILY 02/01/25 02/01/25 History Allergies Allergy/AdvReac Type Severity Reaction Status Date / Time adhesive Allergy Intermediate Rash Verified 02/14/25 08:45 bacitracin (From Neosporin AdvReac Mild Hives Verified 02/14/25 08:45 ([id number])) latex AdvReac Mild Rash Verified 02/14/25 08:45 neomycin (From Neosporin AdvReac Mild Hives Verified 02/14/25 08:45 ([id number])) polymyxin B (From Neosporin AdvReac Mild Hives Verified 02/14/25 08:45 ([id number])) Vital Signs Vital Signs - 24 hr 02/14/25 08:46 Temperature 98.6 F Pulse Rate 72 Respiratory Rate 18 Blood Pressure 146/86 H Pulse Oximetry 98 Oxygen Delivery Room Air Exam Const: General: cooperative and healthy appearing Resp: Effort & Inspection: normal respiratory effort and able to speak in complete sentences Auscultation: clear to auscultation bilaterally Cardio: Rate: regular rate Rhythm: regular rhythm GI: Inspection: normal to inspection GI Palp: No No hepatosplenomegaly present Auscultation: normal bowel sounds Rectal Exam: deferred Skin: General skin exam: normal color Psych: Appearance: grossly normal Mental Status: mental status grossly normal Assessment and Plan Assessment and plan (1) History of colonic polyps: Code(s): Z86.0100 - Personal history of colon polyps, unspecified Status: Acute Assessment and Plan: The patient is deemed a good candidate for the procedure. Consent signed. Will proceed.
[2025-02-14] MEDS: SIMETHICONE ORAL SUSPENSION 20 MG/0.3 ML 30 ML BOTTLE 0.6 ML IRRIGATION (10:34)
[2025-02-14 10:37] VITALS: BP 121/73; PULSE 72; RESP 20; O2SAT 98
[2025-02-14 10:47] VITALS: BP 124/76; PULSE 69; RESP 19; O2SAT 98
[2025-02-14 10:57] VITALS: BP 162/85; PULSE 68; RESP 20; O2SAT 100
== END 2025-02-14 11:07 | disposition home or self-care (01) ==
PROVIDERS: PCP Student in an Organized Health Care Education/Training Program; Referring Provider Student in an Organized Health Care Education/Training Program; Visit Provider Internal Medicine Gastroenterology
PROC: 0DJD8ZZ Inspection of Lower Intestinal Tract, Via Natural or Artificial Opening Endoscopic (ICD-10-PCS; CPT 45378; principal; 2025-02-14 10:00)
DX: Z12.11 Encounter for screening for malignant neoplasm of colon (principal); E78.5 Hyperlipidemia, unspecified; I10 Essential (primary) hypertension; E03.9 Hypothyroidism, unspecified; F41.9 Anxiety disorder, unspecified; F32.A Depression, unspecified; I25.2 Old myocardial infarction; E66.9 Obesity, unspecified; Z68.30 Body mass index [BMI] 30.0-30.9, adult; Z79.83 Long term (current) use of bisphosphonates; Z98.890 Other specified postprocedural states; Z98.61 Coronary angioplasty status; Z86.0100 Personal history of colon polyps, unspecified; Z87.891 Personal history of nicotine dependence
CPT/HCPCS: G0105; J2704; J7120

== ENCOUNTER 2025-02-15 13:56 | Outpatient (CLI) | payer MEDICARE, BC, SELFPAY ==
--- NOTE | ~2025-02-15 | MM_ITS ---
EXAMINATION: MM screening [facility] BI [place] HISTORY: Screening TECHNIQUE: Craniocaudal and mediolateral oblique 3-D tomosynthesis images were obtained and synthetic 2-D images were generated. CAD analysis was submitted and interpreted. COMPARISON: 09/05/2022 BREAST PARENCHYMAL COMPOSITION: There are scattered areas of fibroglandular density. FINDINGS: There is no evidence of suspicious mass, calcification, or architectural distortion to suggest malignancy. There has been no suspicious interval change. IMPRESSION: 1. No mammographic evidence of malignancy. Recommend routine screening mammography in one year. BI-RADS Category 2: Benign finding(s) Reviewed, dictated and finalized at location Q. IMPRESSION: 1. No mammographic evidence of malignancy. Recommend routine screening mammogra phy in one year. BI-RADS Category 2: Benign finding(s)
== END 2025-02-15 13:57 | disposition home or self-care (01) ==
PROVIDERS: PCP Student in an Organized Health Care Education/Training Program; Visit Provider Student in an Organized Health Care Education/Training Program
DX: Z12.31 Encounter for screening mammogram for malignant neoplasm of breast (principal)
CPT/HCPCS: 77063; 77067